=== PATIENT | male | born 1985 | race Caucasian/White ===

== ENCOUNTER 2019-11-01 12:36 | Emergency (ER) | payer OTHER ==
[~2019-11-01] VITALS: Ht 177.8 cm; Wt 80.0 kg
[2019-11-01 13:35] VITALS: BP 132/69
== END 2019-11-01 13:36 | disposition home or self-care (01) ==
LOC: ER 12:36
DX: S80.11XA Contusion of right lower leg, initial encounter (principal); V86.59XA Driver of other special all-terrain or other off-road motor vehicle injured in nontraffic accident, initial encounter; Y93.89 Activity, other specified; Y92.89 Other specified places as the place of occurrence of the external cause; Y99.8 Other external cause status
CPT/HCPCS: 73590; 99283

== ENCOUNTER 2020-08-23 09:56 | Day surgery (SDC) | payer OTHER ==
[~2020-08-23] VITALS: Ht 177.8 cm; Wt 76.1 kg
[2020-08-23] VITALS (7 sets, daily range): BP systolic 116–126; BP diastolic 78–87
[~2020-08-23 09:56] MED LIST: MESSAGE TO NURSING PO ONE; NO HOME MEDS; cefazolin/dext.iso 2gm/50ml 50 ML IV ONE; famotidine 10mg tablet PO ONE; ringers solution, lacted 1,000 ML IV SCH
[2020-08-23] MEDS ORDERED: famotidine 20mg tablet PO ONE (10:10)
[2020-08-23 11:40] LABS: BASOPHILS % (AUTO) 0.2 % (0-1); EOSINOPHILS # (AUTO) 0.1 X10'3 (0-0.9); EOSINOPHILS % (AUTO) 1.1 % (0-6); LYMPHOCYTES # (AUTO) 1.8 X10'3 (1.1-4.8); LYMPHOCYTES % (AUTO) 32.1 % (21-51); MEAN CORPUSCULAR HEMOGLOBIN 30.8 PG (27.0-31.0); MEAN CORPUSCULAR HGB CONC 34.9 g/dL (33.0-36.5); MEAN CORPUSCULAR VOLUME 88.4 FL (78-98); MEAN PLATELET VOLUME 8.9 FL (7.4-10.4); MONOCYTES # (AUTO) 0.4 X10'3 (0-0.9); MONOCYTES % (AUTO) 6.7 % (2-12); NEUTROPHILS # (AUTO) 3.4 X10'3 (1.8-7.7); NEUTROPHILS % (AUTO) 59.9 % (42-75); PRE OP HEMATOCRIT 47.6 % (42.0-52.0); PRE OP HEMOGLOBIN 16.6 g/dL (14.0-17.9); PRE OP PLATELET COUNT 173 X10'3 (140-440); RED BLOOD COUNT 5.38 X10'6 (4.70-6.10); RED CELL DISTRIBUTION WIDTH 12.9 % (11.5-14.5)
--- NOTE | 2020-08-23 11:48 | NUR ---
PT HAS NEGATIVE COVID 19 SCREENING. Addendum: 08/23/20 at 1148 by Yaima Toussaint RN Amended: Links added.
[2020-08-23 12:05] LABS: ALBUMIN 4.2 G/DL (3.4-5.0); ALBUMIN/GLOBULIN RATIO 1.3 (1.1-1.5); ALKALINE PHOSPHATASE 59 IU/L (46-116); BLOOD UREA NITROGEN 13 MG/DL (7-18); BUN/CREATININE RATIO 15.5 (5.4-32.0); CALCIUM 9.3 MG/DL (8.5-10.1); CHLORIDE 105 MMOL/L (99-107); CREATININE 0.84 MG/DL (0.60-1.10); PRE OP ALT 30 U/L (30-65); PRE OP ANION GAP 9 (8-16); PRE OP AST 14 U/L (10-37); PRE OP BILIRUB, TOTAL 0.6 MG/DL (0.0-1.0); PRE OP GLUCOSE 82 MG/DL (70-104); PRE OP SODIUM 139 MMOL/L (135-145); TOTAL PROTEIN 7.5 G/DL (6.4-8.2); eGFR > 90 ML/MIN
[2020-08-23] MEDS ORDERED: BUPIVAcaine/PF 2.5 mg/ml (0.25%) 30ml vial ONE (16:54)
[2020-08-23] MEDS ORDERED: acetaminophen 1000 MG/100ml vial IV ONE (16:57)
[2020-08-23] MEDS ORDERED: sevoflurane 250ml liquid IH ONE (16:57)
[2020-08-23] MEDS ORDERED: proCHLORperazine 10 MG/2 ml inj IV PRN (17:00)
[2020-08-23] MEDS ORDERED: fentaNYL/PF 50MCG/1 ML 2ML syringe ONE (17:00)
[2020-08-23] MEDS ORDERED: ketorolac trometh. 30mg/ml inj. IV ONE (17:00)
[2020-08-23] MEDS ORDERED: labetalol 20mg/4ml (5mg/ml) syringe IV PRN (17:00)
[2020-08-23] MEDS ORDERED: meperidine/PF 25mg/ml syringe IV PRN ×3 (17:00)
[2020-08-23] MEDS ORDERED: hydrALAZINE 20mg/ml inj. IV PRN (17:00)
[2020-08-23] MEDS ORDERED: morphine 4 MG/ML inj SYRINge IV PRN (17:00)
[2020-08-23] MEDS ORDERED: ondansetron/PF 4mg/2ml inj IV PRN (17:00)
[2020-08-23] MEDS ORDERED: morphine 2 MG/ML inj. syringe IV PRN (17:00)
[2020-08-23] MEDS ORDERED: acetaminophen 1,000mg/100ml IV 100 ML IV PRN (17:00)
[2020-08-23] MEDS ORDERED: ringers solution, lacted 1,000 ML IV SCH (17:00)
[2020-08-23] MEDS ORDERED: ondansetron/PF 4mg/2ml inj ONE (17:10)
[2020-08-23] MEDS ORDERED: propofol inj 20 ML IV ONE (17:10)
[2020-08-23] MEDS ORDERED: dexamethasone sod phosphate 4mg/ml inj. ONE (17:10)
[2020-08-23] MEDS ORDERED: LIDOcaine 2% (20mg/ml) 5ml vial ONE (17:10)
[2020-08-23] MEDS ORDERED: midazolam 2 mg/2 ml injection ONE (17:10)
[2020-08-23] MEDS ORDERED: morphine 10mg/ml inj. ONE (17:53)
[2020-08-23] MEDS ORDERED: ketorolac trometh. 30mg/ml inj. ONE (17:53)
--- NOTE | 2020-08-23 18:13 | NUR ---
Received from OR via [facility] , accompanied by Anesthesiologist ANN and report given by Anesthesiolgist. PATIENT WITH 20G PIV IN LEFT UE RUNNING LR AT 100. DENIES PAIN. RIGHT AXILLA DRESSING CDI. JAS DRAIN PRESENT WITH NO DRAINAGE PRESENT. Addendum: 08/23/20 at 1825 by Josh Clifton RN, RN Amended: Links added.
--- NOTE | 2020-08-23 19:13 | NUR ---
. Addendum: 08/23/20 at 1922 by Josh Sebastian - ELISA RN Amended: Links added.
--- NOTE | 2020-08-23 19:13 | NUR ---
Report called to receiving nurse. Transferred via WHEELCHAIR WITH Belongings TO CAR OF WHO TOOK PATIENT HOME. ALL DC CRITERIA HAS BEEN MET AND IV TAKEN OUT WITHOUT COMPLICATIONS, PAIN AT A TOLERABLE LEVEL. DRESSING CDI. EMPTIED JAS FOR 20CC OF BLOODY DRAINAGE PRIOR TO LEAVING FOR HOME. Addendum: 08/23/20 at 1922 by Josh Clifton RN, RN Amended: Links added.
== END 2020-08-23 19:13 | disposition home or self-care (01) ==
LOC: PAS 09:56
PROVIDERS: ATTEND Surgery
PROC: 07B50ZX Excision of Right Axillary Lymphatic, Open Approach, Diagnostic (ICD-10-PCS; 2020-08-23)
PROC: 0JBD0ZZ Excision of Right Upper Arm Subcutaneous Tissue and Fascia, Open Approach (ICD-10-PCS; principal; 2020-08-23 16:57)
DX: C77.3 Secondary and unspecified malignant neoplasm of axilla and upper limb lymph nodes (principal); C80.1 Malignant (primary) neoplasm, unspecified; Z85.820 Personal history of malignant melanoma of skin
CPT/HCPCS: 36415; 38525; 80053; 82948; 85025; J1100; J1885; J2001; J2175; J2250; J2270; J2405; J2704; J3010; J3490; J7120; A4215; A4618; A6449; A6455; A7000; J0131

== ENCOUNTER 2023-09-30 21:57 | Emergency (ER) | payer MEDICAID, OTHER ==
[~2023-09-30] VITALS: Ht 175.3 cm; Wt 75.0 kg
[~2023-09-30 21:57] MED LIST changes: -MESSAGE TO NURSING PO ONE; -cefazolin/dext.iso 2gm/50ml 50 ML IV ONE; -famotidine 10mg tablet PO ONE; -ringers solution, lacted 1,000 ML IV SCH
[2023-09-30 21:58] VITALS: BP 139/90; PULSE 112; RESP 20; O2SAT 100
== END 2023-10-01 01:31 | disposition left against medical advice (07) ==
LOC: ER 21:58
DX: H92.03 Otalgia, bilateral (principal); G43.909 Migraine, unspecified, not intractable, without status migrainosus; Z53.21 Procedure and treatment not carried out due to patient leaving prior to being seen by health care provider
CPT/HCPCS: 99283

== ENCOUNTER 2024-06-14 11:44 | Emergency (ER) | payer MEDICAID, OTHER ==
[~2024-06-14] VITALS: Ht 177.8 cm; Wt 79.5 kg
[2024-06-14 14:34] VITALS: BP 129/78; PULSE 79; RESP 18; TEMP 98.1; O2SAT 98
== END 2024-06-14 14:36 | disposition home or self-care (01) ==
LOC: ER 11:45
DX: S93.491A Sprain of other ligament of right ankle, initial encounter (principal); M79.89 Other specified soft tissue disorders; X58.XXXA Exposure to other specified factors, initial encounter; Y93.89 Activity, other specified; Y92.89 Other specified places as the place of occurrence of the external cause; Y99.8 Other external cause status
CPT/HCPCS: 73610; 99283; A6449

== ENCOUNTER 2025-05-30 11:14 | Emergency (ER) | payer MEDICAID ==
[2025-05-30 11:19] VITALS: TEMP 97.7
--- NOTE | 2025-05-30 11:27 | Physician Documentation ---
History of Present Illness ~ Chief Complaint: Arm Pain Stated Complaint: L ARM INFECTION Time Seen by MD: 11:25 Primary Medical Doctor: CINTIA MCCARTY IN HPI 39 year old male presents to the ED with a complaint of left arm pain which began yesterday. States he thinks he has developed an infection in his left hand and forearm secondary to utilizing his own tattoo gun and completing tattoos on his hand.d arm he says he feels nauseous and has general malaise. Denies any fevers Day of Onset: May 30, 2025 Tetanus within 5 years: No Medication Reconciliation Allergies: Coded Allergies: No Known Allergies (Unverified , 06/14/24) Scheduled Cephalexin*Monohydrate* (Keflex*), 1 CAP PO QID Sulfamethoxazole/Trimethoprim (Septra Ds Tab), 1 TAB PO Q12H Miscellaneous Medications Home Med List (No Home Medications), (Reported) Past Medical History Past Medical History: No Pertinent History Past Surgical History: noncontributory Lives with: Family Lives In: Home Physical Exam Vital Signs: Temperature: 97.7, Heart Rate: 91, Respiratory Rate: 18, Pulse Oximetry: 99 Oxygen Flow Rate: 0 Progress Results/Orders Results/Orders Orders - SILAS SMIS [facility]CARE ADMINISTRATIVE ASSISTANT Culture Blood (05/30/25 11:24) Urinalysis, Cult If Indicated (05/30/25 11:24) Chest,Single View (05/30/25 11:34) Monitor (05/30/25 11:24) Oxygen (05/30/25 11:24) Saline Lock (05/30/25 11:24) Completed Orders - SILAS SIMS HEALTHCARE ADMINISTRATIVE ASSISTANT Cbc/Diff (05/30/25 11:24) Chest,Single View (05/30/25 11:34) Procalcitonin (05/30/25 11:24) BMP (05/30/25 11:24) Lacticsepsis (05/30/25 11:24) Sulfamethox/Trimetho. Ds Tab (Septra Ds (05/30/25 13:55) Ceftriaxone Im Kit W/Lidocaine (Rocephin (05/30/25 13:55) Vital Signs 05/30/25 11:19 Temp 97.7 Pulse 91 Resp 18 Pulse Ox 99 O2 Flow Rate 0 Laboratory Tests Test 05/30/25 11:39 White Blood Count 7.8 Red Blood Count 5.36 Hemoglobin 16.5 Hematocrit 47.5 Mean Corpuscular Volume 88.6 Mean Corpuscular Hemoglobin 30.7 Mean Corpuscular Hemoglobin Concent 34.7 Red Cell Distribution Width 13.4 Platelet Count 222 Mean Platelet Volume 8.5 Neutrophils (%) (Auto) 66.4 Lymphocytes (%) (Auto) 21.7 Monocytes (%) (Auto) 7.3 Eosinophils (%) (Auto) 4.0 Basophils (%) (Auto) 0.6 Neutrophils # (Auto) 5.2 Lymphocytes # (Auto) 1.7 Monocytes # (Auto) 0.6 Eosinophils # (Auto) 0.3 Basophils # (Auto) 0.0 CBC Comment Sodium Level 136 Potassium Level 4.2 Chloride Level 101 Carbon Dioxide Level 25.8 Anion Gap 9 Blood Urea Nitrogen 13 Creatinine 0.98 Estimated GFR/1.73 m2 86 BUN/Creatinine Ratio 13.3 Glucose Level 105 H Lactic Acid Level 0.7 Calcium Level 9.4 Albumin 4.1 Procalcitonin 0.60 H Chemistry Comments Microbiology Date/Time Source Procedure Growth Status 05/30/25 11:39 Blood Arm Left Blood Culture - Preliminary NEGATIVE (LESS THAN 24 HOURS) Resulted Medical Decision Making Findings Patient's laboratory values do not show any signs of developing sepsis however he was positive for a procalcitonin which was 0.60. This is suspicious for a developing bacterial infection likely secondary to tattooing himself with a dirty needle. He is hemodynamically stable and I am suspicious for concurrent methamphetamine use Gave him a loading dose of antibiotics and sent antibiotics to his pharmacy Departure Disposition: HOME / SELF CARE / HOMELESS Impression: Primary Impression: Cellulitis Condition: Stable Discharge Instructions: Cellulitis, Adult, [id number] Referrals: NO PRIMARY CARE PROVIDER (PCP) Prescriptions Cephalexin*Monohydrate* (Keflex*) 500 Mg Capsule 1 CAP PO QID, #40 CAP Prov: SILAS SIMS HEALTHCARE ADMINISTRATIVE ASSISTANT 05/30/25 Sulfamethoxazole/Trimethoprim (Septra Ds Tab) 800 Mg/160 Mg Tablet 1 TAB PO Q12H for 10 Days, #20 TAB Prov: SILAS SIMS NP 05/30/25 Education Educated: Patient Educated regarding: diagnosis Signature Scribe Signature: u Attestation: Scribed for Silas Sims Endbander by Silas Clifton NP . 05/30/25 13:57 SILAS SIMS NP May 30, 2025 11:27
--- NOTE | 2025-05-30 11:49 | RADIOLOGY REPORT ---
CHEST RADIOGRAPH Indication: SEPSIS Technique: Single frontal view of the chest was obtained Comparison: None FINDINGS: Lines and Tubes: None Lungs: The right lateral chest wall is excluded from the field of view which limits evaluation. No fo jonatan consolidation. Pleura: No effusion. No pneumothorax. Cardiomediastinal contours: Unremarkable Bones: No acute osseous abnormality. IMPRESSION: 1. No acute cardiopulmonary disease.
[2025-05-30 11:53] LABS: MEAN PLATELET VOLUME 8.5 FL (7.4-10.4); RED CELL DISTRIBUTION WIDTH 13.4 % (11.5-14.5)
[2025-05-30 12:05] LABS: CREATININE 0.98 MG/DL (0.60-1.10); TOTAL CARBON DIOXIDE 25.8 MMOL/L (24-32); eGFR 86 ML/MIN
[2025-05-30] MEDS: CefTRIAXone 1000mg IM Kit (w/lidocaine diluent) IM ONE (13:55)
[2025-05-30] MEDS: sulfamethoxazole/trimethoprim DS (800/160mg) tablet PO ONE (13:55)
[2025-05-30] MEDS ORDERED: SULF1TAB45 PO (13:57)
[2025-05-30] MEDS ORDERED: CEPH-585 PO (13:57)
[2025-05-30 14:26] VITALS: BP 120/88; PULSE 80; RESP 12; O2SAT 98
== END 2025-05-30 14:30 | disposition home or self-care (01) ==
LOC: ER 11:15
DX: L03.114 Cellulitis of left upper limb (principal); Z79.899 Other long term (current) drug therapy
CPT/HCPCS: 36415; 71045; 80048; 83605; 84145; 85025; 87040; 96372; 99284; J0696